=== PATIENT | female | born 1950 | race Caucasian/White ===

== ENCOUNTER 2021-10-17 00:16 | Emergency (ER) | payer OTHER, MEDICARE ==
[~2021-10-17] VITALS: Ht 172.7 cm; Wt 65.8 kg
[2021-10-17] MEDS ORDERED: IBUP600 PO ×2 (06:11→07:10)
[2021-10-17] MEDS ORDERED: Roxicodone5 MG PO ×2 (06:11→07:10)
== END 2021-10-17 08:58 | disposition home or self-care (01) ==
LOC: ER 00:16
DX: S82.035A Nondisplaced transverse fracture of left patella, initial encounter for closed fracture (principal); S83.92XA Sprain of unspecified site of left knee, initial encounter; W01.10XA Fall on same level from slipping, tripping and stumbling with subsequent striking against unspecified object, initial encounter
CPT/HCPCS: 29505; 71046; 73562-LT; 73700; 90471; 90714; 99284-25; A9270